=== PATIENT | female | born 1985 ===

== ENCOUNTER 2020-12-19 05:58 | Emergency (ER) | payer OTHER ==
[~2020-12-19] VITALS: Ht 154.9 cm; Wt 80.3 kg
[2020-12-19 07:41] VITALS: BP 116/79
[2020-12-19] MEDS ORDERED: cefTRIAXone SOD 1,000 MG VL IM ONE (07:45)
[2020-12-19] MEDS ORDERED: DexAMETHasone SOD PHOS 10MG/1ML VIAL INJ IM ONE (07:45)
[2020-12-19] MEDS ORDERED: LIDOCAINE 1% HCL (LOCAL ANESTH.) INJ 20ML MDV ONE (07:52)
== END 2020-12-19 09:14 | disposition home or self-care (01) ==
LOC: ER 05:58
DX: U07.1 COVID-19 (principal); J12.82 Pneumonia due to coronavirus disease 2019; J03.90 Acute tonsillitis, unspecified
CPT/HCPCS: 36415; 71045; 87426; 96372; 99284; J0696; J1100; J2001